=== PATIENT | male | born 1985 | race African-American/Black ===

== ENCOUNTER 2024-04-10 15:06 | Emergency (ER) | payer SELFPAY ==
[2024-04-10] MEDS ORDERED: Lidocaine 1% MPF 2 ML VIAL ONE (16:39)
[2024-04-10] MEDS ORDERED: cefTRIAXone (ROCEPHIN) 500 MG VIAL ONE (16:40)
[2024-04-10 17:20] LABS: Bacteria/HPF None Seen HPF (None Seen); Bilirubin Negative (Negative); Blood, Urine Negative (Negative); CAUTI Indications for Culture Pelvic or flank pain; Clarity Clear (Clear); Glucose, Urine (Dipstick) Normal (Negative); Ketone, Urine Negative (Negative); Leukocyte Negative Leu/uL (Negative); Nitrite Negative (Negative); Protein, Urine (Dipstick) 10 mg/dL (Neg-Trace); RBC/HPF 0-3 HPF (0-3); Specific Gravity, Urine 1.032 (1.002-1.036); Squamous Epithelial None Seen HPF (0-3); Urobilinogen Normal mg/dL (Less than 2); WBC/HPF 0-3 HPF (0-3); pH, Urine 5.5 (5.0-9.0)
[2024-04-10 17:33] LABS: Urine Culture Reflex No No
[2024-04-10 22:50] LABS: Chlam.trachomatis by PCR,Urine Not Detected (NotDetected); GC N.gonorrhoeae PCR,UrineVOID Not Detected (NotDetected)
== END 2024-04-10 20:24 ==
LOC: ERS 15:06
DX: Z53.21 Procedure and treatment not carried out due to patient leaving prior to being seen by health care provider (principal)
CPT/HCPCS: 81001; 87491; 87591; J0696